=== PATIENT | male | born 1960 | race Caucasian/White ===

== ENCOUNTER 2018-07-10 11:51 | Outpatient (CLI) | payer OTHER, SELFPAY ==
--- NOTE | 2018-07-10 11:56 | DI.US_ITS ---
SYMPTOM/DIAGNOSIS: RT TESTICULAR SWELLING, N50.89 SCROTAL ULTRASOUND: The testicles are normal in size and echogenicity and show normal blood flow. No mass or torsion is seen. The epididymi appear normal. There is a fluid collection of multiple septations lateral and superior to the right testicle with some debris. The findings likely represent a spermatocele. The measurement is approximately 4.9 by 4.1 by 5.8 cm. IMPRESSION: Right sided spermatocele. Angella appearing testicles and epididymi.
== END 2018-07-10 12:11 ==
PROVIDERS: PCP Nurse Practitioner; Visit Provider Nurse Practitioner
DX: N50.89 Other specified disorders of the male genital organs (principal); N43.41 Spermatocele of epididymis, single
CPT/HCPCS: 76870

== ENCOUNTER → 2018-08-21 15:00 | Outpatient (BNVA) | payer OTHER, SELFPAY | PROVIDERS: PCP Nurse Practitioner; Visit Provider Urology | DX: N43.42 Spermatocele of epididymis, multiple (principal); I10 Essential (primary) hypertension | CPT/HCPCS: 99203; 99214 ==

== ENCOUNTER 2018-11-20 08:21 | Outpatient (CLI) | payer OTHER, SELFPAY ==
[2018-11-20 10:10] LABS: ALT 30 U/L (12-78); AST 34 U/L (15-37); Albumin 3.8 g/dL (3.4-5.0); Alkaline Phosphatase 91 U/L (46-116); Anion Gap 7.5 mmol/L (3-11); BUN 16 mg/dL (7-18); Bilirubin, Total 0.5 mg/dL (0.2-1.0); CO2 29.5 mmol/L (21.0-32.0); CREATININE 0.85 mg/dL (0.70-1.30); Calcium 8.6 mg/dL (8.5-10.1); Chloride 100 mmol/L (98-107); Cholesterol 155 mg/dL (50-200); Glucose 103 mg/dL (70-100); HDL Cholesterol 51 mg/dL (40-60); LDL CHOLESTEROL 91 mg/dL (<100); Potassium 4.3 mmol/L (3.5-5.1); Sodium 137 mmol/L (136-145); Total Protein 7.3 g/dL (6.4-8.2); Triglyceride 38 mg/dL (30-150)
== END 2018-11-20 08:41 ==
PROVIDERS: PCP Nurse Practitioner; Visit Provider Nurse Practitioner
DX: E78.5 Hyperlipidemia, unspecified (principal); I10 Essential (primary) hypertension
CPT/HCPCS: 36415; 80053; 80061; 83721

== ENCOUNTER 2020-05-31 03:18 | Outpatient (CLI) | payer OTHER, SELFPAY ==
[2020-05-31 15:57] LABS: ALT 23 U/L (16-63); AST 30 U/L (15-37); Alkaline Phosphatase 84 U/L (46-116); Anion Gap 7.9 mmol/L (3-11); BUN 10 mg/dL (7-18); Bilirubin, Total 0.3 mg/dL (0.2-1.0); CO2 28.1 mmol/L (21.0-32.0); CREATININE 0.84 mg/dL (0.70-1.30); Calcium 8.4 mg/dL (8.5-10.1); Calculated LDL 82 mg/dL (<100); Chloride 101 mmol/L (98-107); Cholesterol 157 mg/dL (<200); Glucose 75 mg/dL (74-106); HDL Cholesterol 54 mg/dL (40-60); Potassium 4.5 mmol/L (3.5-5.1); Sodium 137 mmol/L (136-145); Total Protein 7.2 g/dL (6.4-8.2); Triglyceride 105 mg/dL (<150)
== END 2020-05-31 03:38 ==
PROVIDERS: PCP Nurse Practitioner; Visit Provider Nurse Practitioner
DX: I10 Essential (primary) hypertension (principal); Z13.220 Encounter for screening for lipoid disorders
CPT/HCPCS: 36415; 80053; 80061

== ENCOUNTER → 2021-11-02 13:21 | Outpatient (BNVA) | payer MEDICARE, SELFPAY | PROVIDERS: PCP Nurse Practitioner; Referring Provider Nurse Practitioner; Visit Provider Physical Therapy Assistant | DX: R69 Illness, unspecified (principal) ==

== ENCOUNTER 2022-01-09 02:22 | Outpatient (CLI) | payer MEDICARE, SELFPAY ==
[2022-01-09 12:16] LABS: HCT 41.1 % (40.0-50.0); HGB 13.8 g/dL (13.5-17.5); MCH 30.9 pg (27.0-33.0); MCHC 33.6 % (32.0-36.0); MCV 92 fL (80-95); MPV 9.6 fL (8.0-11.0); Platelet Count 222 10^3/uL (130-400); RBC 4.46 10^6/uL (4.36-5.78); RDW 11.9 % (11.8-14.1); WBC 6.81 10^3/uL (4.4-10.8)
[2022-01-09 12:51] LABS: ALT 11 U/L (16-63); AST 13 U/L (15-37); Albumin 4.1 g/dL (3.4-5.0); Alkaline Phosphatase 99 U/L (46-116); Anion Gap 5.6 mmol/L (3-11); BUN 15 mg/dL (7-18); Bilirubin, Total 0.5 mg/dL (0.2-1.0); CO2 29.4 mmol/L (21.0-32.0); Calcium 8.7 mg/dL (8.5-10.1); Calculated LDL 122 mg/dL (<100); Chloride 101 mmol/L (98-107); Cholesterol 191 mg/dL (<200); Glucose 108 mg/dL (74-106); HDL Cholesterol 60 mg/dL (40-60); Potassium 4.5 mmol/L (3.5-5.1); Sodium 136 mmol/L (136-145); Total Protein 7.8 g/dL (6.4-8.2); Triglyceride 49 mg/dL (<150)
== END 2022-01-09 02:23 | disposition home or self-care (01) ==
LOC: LBO 02:22
PROVIDERS: Absent Provider Nurse Practitioner; PCP Nurse Practitioner; Referring Provider Nurse Practitioner; Visit Provider Nurse Practitioner
DX: E78.5 Hyperlipidemia, unspecified (principal); I10 Essential (primary) hypertension
CPT/HCPCS: 36415; 80053; 80061; 85027

== ENCOUNTER 2023-07-02 02:53 | Outpatient (CLI) | payer MEDICARE, SELFPAY ==
[2023-07-02 14:19] LABS: ALT 22 U/L (16-63); AST 18 U/L (15-37); Alkaline Phosphatase 93 U/L (46-116); Anion Gap 7.9 mmol/L (3-11); BUN 8 mg/dL (7-18); Bilirubin, Total 0.5 mg/dL (0.2-1.0); CO2 32.1 mmol/L (21.0-32.0); CREATININE 0.9 mg/dL (0.70-1.30); Calcium 9.1 mg/dL (8.5-10.1); Chloride 100 mmol/L (98-107); Estimated GFR 95.97 (mL/min/1.73m2); Glucose 92 mg/dL (74-106); Potassium 4.3 mmol/L (3.5-5.1); Sodium 140 mmol/L (136-145); Total Protein 7.4 g/dL (6.4-8.2)
== END 2023-07-02 02:54 | disposition home or self-care (01) ==
LOC: LBO 02:53
PROVIDERS: Absent Provider Nurse Practitioner; PCP Nurse Practitioner; Visit Provider Nurse Practitioner
DX: I10 Essential (primary) hypertension (principal)
CPT/HCPCS: 36415; 80053

== ENCOUNTER 2025-05-17 09:33 | Outpatient (CLI) | payer MEDICARE, SELFPAY ==
[2025-05-17 09:50] LABS: Abs Immature Grans 0.00 10^3/uL (0.0-0.06); HCT 43.1 % (40.0-50.0); HGB 15.0 g/dL (13.5-17.5); Immature Grans % 0.0 %; MCH 33.3 pg (27.0-33.0); MCHC 34.8 % (32.0-36.0); MCV 96 fL (80-95); MPV 9.3 fL (8.0-11.0); Platelet Count 272 10^3/uL (130-400); RBC 4.50 10^6/uL (4.36-5.78); RDW 12.0 % (11.8-14.1); RDW-SD 42.6 fL; WBC 7.05 10^3/uL (4.4-10.8)
[2025-05-17 09:51] LABS: Glucose Negative (Negative)
[2025-05-17 10:11] LABS: Hemoglobin A1C 5.5 % (<5.7)
[2025-05-17 12:38] LABS: ALT 26 U/L (16-63); AST 20 U/L (15-37); Albumin 4.0 g/dL (3.4-5.0); Alkaline Phosphatase 82 U/L (46-116); BUN 19 mg/dL (7-18); Bilirubin, Total 0.4 mg/dL (0.2-1.0); Calcium 9.1 mg/dL (8.5-10.1); Calculated LDL 86 mg/dL (<100); Chloride 98 mmol/L (98-107); Cholesterol 169 mg/dL (<200); Estimated GFR 83.52 (mL/min/1.73m2); Glucose 109 mg/dL (74-106); HDL Cholesterol 64 mg/dL (>or=40); Potassium 4.8 mmol/L (3.5-5.1); Sodium 136 mmol/L (136-145); TSH 1.29 uIU/mL (0.36-3.74); Total Protein 7.7 g/dL (6.4-8.2); Triglyceride 95 mg/dL (<150)
[2025-05-17 12:55] LABS: Anion Gap 6.7 mmol/L (3-11); CO2 31.3 mmol/L (21.0-32.0)
[2025-05-18 14:54] LABS: PSA, Screening 0.4 ng/mL (<=4.5)
== END 2025-05-17 09:34 | disposition home or self-care (01) ==
LOC: LBO 09:33
PROVIDERS: PCP Nurse Practitioner; Visit Provider Family Medicine
DX: Z13.9 Encounter for screening, unspecified (principal); I10 Essential (primary) hypertension
CPT/HCPCS: 80053; 80061; 84153; 81003; 83036; 84443; 85025

== ENCOUNTER → 2025-07-05 00:25 | Outpatient (CLI) | payer MEDICARE, SELFPAY ==
--- NOTE | 2025-07-05 12:56 | DI.CTLCSR_ITS ---
Exam(s) CT CHEST LUNG CANCER SCREEN EXAM: CT CHEST LUNG CANCER SCREEN CLINICAL HISTORY: Screening for lung cancer,smoker,tobacco use disorder,f17.210. TECHNIQUE: Imaging Protocol: Low Dose Technique CONTRAST MATERIAL: None COMPARISON: No exams were available for comparison FINDINGS: CHEST: LUNGS: There are no focal left lung findxings. There is a pleural based noncalcified 3-4 mm nodule in the lateral aspect of the right upper lobe. There is mild scarring in both lung apices. There is a 3 millimeters sub apical noncalcified nodule in the right upper lobe. No other significant nodules nor infiltrates and there are no pleural effusions. No significant focal findings in the trachea and mainstem bronchi. MEDIASTINUM: There is no obvious hilar nor mediastinal adenopathy. CARDIAC: Heart size is normal. There is no pericardial effusion.The diameter of the ascending thoracic aorta is 3.8 cm. The diameter of the distal aortic arch and proximal descending thoracic aorta are enlarged, measuring 3.8 cm. The diameter of the mid descending thoracic aorta is 3.1 cm, also prominent. OTHER: None OSSEOUS: No significant osseous lesions.No acute fractures.. IMPRESSION: 1. Two small presently benign-appearing noncalcified right upper lobe nodules both measuring 3-4 mm. No infiltrates nor pleural effusions. 2. Enlarged thoracic aorta with measurements as above. 3. Lung RADS Cat 2 - Benign Appearance / Behavior: Nodules with a very low likelihood of becoming a clinically active cancer due to size or lack of growth Lung-RADS 1.0 CATEGORIES: Category 0 - Prior chest CT exam(s) being located for comparison. Category 1 - Annual screening in 12 months. No nodules or definitely benign nodules. Category 2 - Annual screening in 12 months. Benign appearance. Nodules with low likelihood of becoming active cancer. Category 3 - 6-month follow-up. Probably benign. Short-term follow-up suggested. Nodules with low likelihood of becoming active cancer. Category 4A - 3-month follow-up and CT/PET if >8 mm in size. Suspicious finding. Findings which require additional testing. Category 4B - Findings which require additional testing and tissue sampling. Category 4X - Category 3 or 4 nodules with additional features or imaging findings that increases the suspicion of malignancy. Modifier S- Potentially clinically significant findings (non lung cancer) RADIATION DOSE DELIVERED: 30.23mGy.cm Total DLP DATA REPOSITORY: All CT scans at this facility are submitted to the National Radiology Data Registry (NRDR) Dose Index Registry (DIR) with the [employer] ([employer]). RADIATION OPTIMIZATION: All CT scans at this facility use at least one of these dose optimization techniques: automated exposure control; mA and/or kV adjustment per patient size (includes targeted exams where dose is matched to clinical indication); or iterative reconstruction.
== END ==
LOC: DI 00:25
DX: Z12.2 Encounter for screening for malignant neoplasm of respiratory organs (principal); F17.210 Nicotine dependence, cigarettes, uncomplicated; R91.8 Other nonspecific abnormal finding of lung field
CPT/HCPCS: 71271